=== PATIENT | male | born 1950 | race Caucasian/White ===

== ENCOUNTER 2019-08-26 06:10 | Emergency (ER) | payer OTHER, MEDICAID ==
[~2019-08-26] VITALS: Ht 162.6 cm; Wt 68.5 kg
[~2019-08-26 06:10] MED LIST: NPH10OT LEFT EAR
[2019-08-26 06:13] VITALS: BP 141/75; PULSE 63; RESP 16; Ht 162.6 cm; Wt 68.5 kg
== END 2019-08-26 07:10 | disposition home or self-care (01) ==
LOC: FTE 06:10
DX: T16.2XXA Foreign body in left ear, initial encounter (principal); X58.XXXA Exposure to other specified factors, initial encounter; Y92.9 Unspecified place or not applicable
CPT/HCPCS: 99283